=== PATIENT | female | born 1950 | race Hispanic/Latino ===

== ENCOUNTER 2018-04-01 12:49 | Emergency (ER) | payer SELFPAY ==
[2018-04-01 13:09] VITALS: BMI 39.9
--- NOTE | 2018-04-01 13:33 | ED PDOC ---
Arrival/HPI - General Chief Complaint: Lower Extremity Problem/Injury Time Seen by Provider: 04/01/18 13:27 Historian: Patient - History of Present Illness Narrative History of Present Illness (Text): 04/01/18 13:34 67 year old female, who recently flew from [facility], presents to the Emergency department complaining of right leg swelling and discomfort since 2 days. Patient states she was in a 19 hour flight when the symptoms began and has been consistent since. Patient denies any fever, chills, nausea, vomiting, diarrhea, abdominal pain, chest pain, shortness of breath or any other complaints. Patient presents to the Emergency department for medical evaluation. Time/Duration: < week (2 days) Symptom Onset: Gradual Symptom Course: Unchanged Activities at Onset: Light Context: Sitting Past Medical History - Provider Review Nursing Documentation Reviewed: Yes - Infectious Disease Hx of Infectious Diseases: None - Cardiac Hx Hypertension: Yes Other/Comment: thrombophlebitis - Psychiatric Hx Substance Use: No - Surgical History Hx Cholecystectomy: Yes - Anesthesia Hx Anesthesia: Yes Hx Anesthesia Reactions: No Hx Malignant Hyperthermia: No Family/Social History - Physician Review Nursing Documentation Reviewed: Yes Family/Social History: No Known Family HX Smoking Status: Never Smoked Hx Alcohol Use: No Hx Substance Use: No Allergies/Home Meds Allergies/Adverse Reactions: Allergies No Known Allergies Allergy (Verified 04/01/18 13:08) Home Medications: Home Meds Medication Instructions Recorded Confirmed Aspirin [Aspirin Chewable] 1 tab PO DAILY 04/01/18 04/01/18 Home Med [Home Med] 1 tab PO DAILY 04/01/18 04/01/18 Review of Systems - Physician Review All systems were reviewed & negative as marked: Yes - Review of Systems Constitutional: Normal. absent: Fevers Eyes: Normal ENT: Normal Respiratory: Normal. absent: SOB Cardiovascular: Normal. absent: Chest Pain Gastrointestinal: Normal. absent: Abdominal Pain, Diarrhea, Nausea, Vomiting Genitourinary Female: Normal Musculoskeletal: Other (right leg and ankle swelling and discomfort.) Skin: Normal Neurological: Normal Endocrine: Normal Hemo/Lymphatic: Normal Psychiatric: Normal Physical Exam Vital Signs Reviewed: Yes Vital Signs Temp Pulse Resp BP Pulse Ox 04/01/18 13:15 98.0 F 51 L 18 169/88 H 97 Temperature: Afebrile Blood Pressure: Hypertensive Pulse: Bradycardic Respiratory Rate: Normal Appearance: Positive for: Well-Appearing, Non-Toxic, Comfortable Pain Distress: None Mental Status: Positive for: Alert and Oriented X 3 - Systems Exam Head: Present: Atraumatic, Normocephalic Pupils: Present: PERRL Extroacular Muscles: Present: EOMI Conjunctiva: Present: Normal Respiratory/Chest: Present: Clear to Auscultation, Good Air Exchange. No: Respiratory Distress, Accessory Muscle Use Cardiovascular: Present: Regular Rate and Rhythm, Normal S1, S2. No: Murmurs Abdomen: No: Tenderness, Distention, Peritoneal Signs Upper Extremity: Present: Normal Inspection. No: Cyanosis, Edema Lower Extremity: Present: Edema (Right leg swelling), NORMAL PULSES, Normal ROM. No: CALF TENDERNESS Neurological: Present: GCS=15, CN II-XII Intact, Speech Normal Skin: Present: Warm, Dry, Normal Color. No: Rashes Psychiatric: Present: Alert, Oriented x 3, Normal Insight, Normal Concentration Medical Decision Making ED Course and Treatment: 04/01/18 13:32 Impression: 67 year old female presents to the Emergency department for right leg swelling and discomfort. Differential Diagnosis included but are not limited to: DVT Plan: -- US of Lower extremity -- X-ray of right ankle -- Reassess and disposition Progress Notes: 04/01/18 14:00 Result of Ultrasound discussed with radiologist, shows positive DVT. 04/01/18 14:35 X-ray of right ankle reviewed by radiologist, shows: FINDINGS: BONES: No fracture. Incidentally noted plantar calcaneal spur. JOINTS: Normal. No osteoarthritis. Ankle mortise maintained. Talar dome intact SOFT TISSUES: Normal. OTHER FINDINGS: None. IMPRESSION: No fracture/dislocation. Plantar calcaneal spur incidentally noted. 04/01/18 16:07 Case discussed with hospitalist, Dr. Bacon, who is aware and agrees with plan. States pt can be d/c on eloquis. Patient d/c with 3 month prescription of eloquis. Case discussed with rn social work, who gave pt coupons for medication. Case discussed with family member, who was able to translate and explain case to pt. - Lab Interpretations Lab Results: 04/01/18 15:20 Lab Results 04/01/18 15:20: PT 13.4 H, INR 1.17 H, APTT 30.1 04/01/18 15:20: WBC 6.2, RBC 4.35, Hgb 12.1, Hct 36.9, MCV 84.8, MCH 27.8, MCHC 32.8, RDW 13.2, Plt Count 220, MPV 10.0, Gran % 50.1, Lymph % (Auto) 40.3 H, Calhoun % (Auto) 5.0, Eos % (Auto) 4.3, Baso % (Auto) 0.3, Gran # 3.12, Lymph # ( Auto) 2.5, Calhoun # (Auto) 0.3, Eos # (Auto) 0.3, Baso # (Auto) 0.02 - RAD Interpretation Radiology Orders: 04/01/18 13:31 ANKLE RIGHT 3 VIEWS ROUTINE [RAD] Stat DUPLEX LOWER EXTRM VEIN RIGHT [US] Stat Bar Roller: Radiologist - Medication Orders Current Medication Orders: Discontinued Medications Apixaban (Eliquis) 10 mg PO ONCE ONE PRN Reason: Protocol Stop: 04/01/18 14:49 Last Admin: 04/01/18 15:36 Dose: 10 mg - Scribe Statement The provider has reviewed the documentation as recorded by the Scribe Bear Mcnair. All medical record entries made by the Chelseyibe were at my direction and personally dictated by me. I have reviewed the chart and agree that the record accurately reflects my personal performance of the history, physical exam, medical decision making, and the department course for this patient. I have also personally directed, reviewed, and agree with the discharge instructions and disposition. Disposition/Present on Arrival - Present on Arrival Any Indicators Present on Arrival: No History of DVT/PE: No History of Uncontrolled Diabetes: No Urinary Catheter: No History of Decub. Ulcer: No History Surgical Site Infection Following: None - Disposition Have Diagnosis and Disposition been Completed?: Yes Diagnosis: DVT (deep venous thrombosis) Disposition: HOME/ ROUTINE Disposition Time: 16:02 Patient Plan: Discharge Patient Problems: Current Active Problems Problem Status Onset DVT (deep venous thrombosis) Acute Condition: GOOD Discharge Instructions (ExitCare): Deep Vein Thrombosis (Blood Clots in the Legs) (DC) Additional Instructions: Mrs Wallace- It was a pleasure to meet you. Take the blood thinner twice a day everyday for then next three months. Follow up with your doctors when you return home to see if you need to extend that to six months. Best- Dr. Yrn Jorgensen Prescriptions: Apixaban [Eliquis] 5 mg PO BID #240 tablet Apixaban [Eliquis] 10 mg PO BID #14 tab Forms: [employer] (Maltese)
--- NOTE | 2018-04-01 14:30 | RAD ---
PROCEDURE: Right Ankle Radiographs. HISTORY: Pain And Swelling Right Ankle COMPARISON: None FINDINGS: BONES: No fracture. Incidentally noted plantar calcaneal spur. JOINTS: Normal. No osteoarthritis. Ankle mortise maintained. Talar dome intact SOFT TISSUES: Normal. OTHER FINDINGS: None. IMPRESSION: No fracture/dislocation. Plantar calcaneal spur incidentally noted.
[2018-04-01 15:32] LABS: BASO # 0.02 K/mm3 (0.0-2.0); BASO % 0.3 % (0.0-3.0); EOS # 0.3 (0.0-0.7); EOS % 4.3 % (1.5-5.0); GRAN # 3.12 (1.4-6.5); GRAN % 50.1 % (50.0-68.0); HEMOGLOBIN 12.1 g/dL (12.0-16.0); LYMPH # 2.5 (1.2-3.4); LYMPH % 40.3 % (22.0-35.0); MEAN CELL VOLUME 84.8 fl (80.0-105.0); MEAN CORPUSCULAR HEMOGLOBIN 27.8 pg (25.0-35.0); MEAN CORPUSCULAR HGB CONC 32.8 g/dl (31.0-37.0); MONO # 0.3 (0.1-0.6); RBC 4.35 10^6/uL (3.5-6.1); RED CELL DISTRIBUTION WIDTH 13.2 % (11.5-14.5); WHITE BLOOD COUNT 6.2 10^3/ul (4.5-11.0)
[2018-04-01 15:54] LABS: INR 1.17 (0.93-1.08); PARTIAL THROMBOPLASTIN TIME 30.1 Seconds (25.1-36.5); PROTHROMBIN TIME 13.4 SECONDS (9.4-12.5)
[2018-04-01 16:16] VITALS: BP 150/80; PULSE 60; RESP 17; TEMP 98; O2SAT 99
--- NOTE | 2018-04-01 18:13 | US ---
PROCEDURE: Right lower extremity venous US HISTORY: Leg pain and swelling. Evaluate for DVT. PHYSICIAN(S): Alejandro Tubbs M.D. TECHNIQUE: Duplex sonography and color-flow Doppler with graded compression were used to evaluate the deep venous system of the right lower extremity. FINDINGS: Hypoechoic occlusive acute thrombus is noted throughout the right femoral and popliteal veins. The right common femoral vein is patent and compressible. The proximal right profunda femoral vein is patent. IMPRESSION: 1. Acute occlusive hypoechoic thrombus in the right femoral and popliteal veins.
== END 2018-04-01 16:16 | disposition home or self-care (01) ==
LOC: ED 12:49
DX: I82.431 Acute embolism and thrombosis of right popliteal vein (principal); I82.411 Acute embolism and thrombosis of right femoral vein; I10 Essential (primary) hypertension